=== PATIENT | female | born 1955 | race Caucasian/White ===

== ENCOUNTER 2016-10-16 10:09 | Emergency (ER) | payer OTHER ==
[~2016-10-16] VITALS: Ht 165.1 cm; Wt 54.4 kg
[2016-10-16 10:19] VITALS: BP 127/73
--- NOTE | 2016-10-16 10:54 | ED GENERAL ADULT ---
History of Present Illness General Chief Complaint: Sore Throat, Dental Pain Stated Complaint: CANKER SORES IN MOUTH X 2 WEEKS Source: patient Exam Limitations: no limitations Vital Signs & Intake/Output Vital Signs & Intake/Output Vital Signs Date Time Temp Pulse Resp B/P Pulse O2 O2 Flow FiO2 Ox Delivery Rate 10/16 1124 98 Room Air 10/16 1019 98.3 99 20 127/73 98 Room Air ED Intake and Output 10/17 0000 10/16 1200 Intake Total Output Total Balance Patient 120 lb Weight Allergies Coded Allergies: cefprozil (From CEFZIL) (ITCHING 10/16/16) doxycycline (HEADACHE 10/16/16) Reconcile Medications Lidocaine HCl (Lidocaine HCl Viscous) 2 % SOLUTION 15 ML PO 4 TIMES/DAY PRN PAIN Nystatin 100,000 UNIT/ML ORAL.SUSP 5 ML PO 4 TIMES/DAY THRUSH Triage Note: PT TO ED C/O "CANKER SORES" IN HER MOUTH X 2 WEEKS. Triage Nurses Notes Reviewed? yes Onset: Gradual Duration: week(s): (2) Timing: remote history Injury Environment: home Severity: moderate Severity Numbers: 7 No Modifying Factors: none HPI: Patient is a 61-year-old female with history of rheumatoid arthritis on methotrexate presenting to the emergency department with chief complaint of canker sores in her mouth 2 weeks. She reports that she noticed it 2 weeks ago and has been doing salt water gargles with little relief. Denies any fevers or chills. No chest pain palpitations shortness of breath. Pain is worse when she tries TO EAT ANYTHING. History of canker sores in the past that have gone away by themselves. Denies any dosing changes with medicatIONS. Denies trouble breathing. (ACE RILEY) Past History Travel History Traveled to [place] past 21 day No Medical History Any Pertinent Medical History? see below for history Musculoskeletal: rheumatoid arthritis Surgical History Surgical History: non-contributory Psychosocial History What is your primary language [place] Tobacco Use: Never used ETOH Use: denies use Illicit Drug Use: denies illicit drug use Family History Hx Contributory? No (ACE RILEY) Review of Systems Review of Systems Constitutional: Reports: no symptoms. Comments Review of systems: See HPI, All other systems negative. Constitutional, no chills fever or weight loss HEENT: No visual changes no sore throat no congestion Cardiovascular: No chest pain ,palpitation , orthopnea or ankle swelling Skin, no jaundicE Respiratory: No dyspnea cough sputum or hemoptysis GI: No nausea no vomiting : No dysuria No hematuria Muscle skeletal: no back pain, no neck pain, Neurologic: No numbness no confusion NO HUTTON Psych: No stress anxiety Immunology: No splenectomy or history of AIDS (ACE RILEY) Physical Exam Physical Exam General Appearance: well developed/nourished, no apparent distress, alert, awake , comfortable Comments: Well-developed well-nourished person in no acute distress HEENT: Pupils equally round and reactive to light and accommodation. Nose is atraumatic. External auditory canal and Tympanic membranes clear. Posterior pharynx is significantly erythematous and injected, thick white discharge noted on the tongue, canker sores noted on BUCCAL surface bilaterally. No tonsillar enlargement. Neck: Supple, no lymphadenopathy, normal range of motion without pain or tenderness Cardiovascular: Regular rate and rhythms no murmurs rubs or gallops, normal JVP Respiratory: No respiratory distress.breath sounds clear to auscultation bilaterally Extremity: No edema Neuro: Alert oriented x3 Skin: No appreciable rash on exposed skin, skin is warm and dry. Psych: Mood and affect is normal, memory and judgment is normal. Core Measures ACS in differential dx? No CVA/TIA Diagnosis: No Severe Sepsis Present: No Septic Shock Present: No (ACE RILEY) Progress Differential Diagnoses I considered the following diagnoses in my evaluation of the patient: ThrUSH, tinea, strep, viral pharyngitis Plan of Care: Orders Procedure Date/time Status THROAT CULTURE W/QUICK STREP 10/16 1053 Active Initial ED EKG: none Comments: Rapid strep is negative. Visual be treated for thrush. She'll follow up with her primary care physician next 24 hours. Patient nontoxic /afebrile. (ACE RILEY) Departure Departure Time of Disposition: 1115 Disposition: HOME OR SELF CARE Condition: Stable Clinical Impression Primary Impression: Thrush Referrals: DAWOOD WALLER,SHAWN Alves (PCP/Family) Referred to [facility] as new patient No Additional Instructions: Follow-up with your primary care physician call to make an appointment for the next couple days. Start using nystatin mouthwash as prescribed. USE lidocaine mouthwash as prescribed to help with pain. Return for worsening symptoms or concerns. Departure Forms: Customer Survey General Discharge Information Prescriptions: Current Visit Scripts Nystatin 5 ML PO 4 TIMES/DAY #200 ML Lidocaine HCl (Lidocaine HCl Viscous) 15 ML PO 4 TIMES/DAY PRN PAIN #100 ML (ACE RILEY) PA/SOFTWARE TOOLS ENGINEER Co-Sign Statement Statement: ED Attending supervision documentation- [] I saw and evaluated the patient. I have also reviewed all the pertinent lab results and diagnostic results. I agree with the findings and the plan of care as documented in the PA's/SOFTWARE TOOLS ENGINEER's documentation. [X] I have reviewed the ED Record and agree with the PA's/SOFTWARE TOOLS ENGINEER's documentation. [] Additions or exceptions (if any) to the PAs/SOFTWARE TOOLS ENGINEER's note and plan are summarized below: [] (VANE JENNINGS DO) Critical Care Note Critical Care Note Critical Care Time: non-applicable (ACE RILEY)
[2016-10-16] MEDS ORDERED: LIDOCAINE HCL V15 ML PO (11:17)
[2016-10-16] MEDS ORDERED: NYSTATIN100000 UNI PO (11:17)
== END 2016-10-16 11:25 ==
LOC: ERH 10:09
DX: B37.0 Candidal stomatitis (principal)